=== PATIENT | female | born 1985 ===

== ENCOUNTER 2018-01-16 01:17 | Emergency (ER) | payer SELFPAY ==
--- NOTE | 2018-01-16 01:29 | C.PDOC ---
History Of Present Illness Patient brought in by family member due to excfessive intake of red wine in a democrat. Denied history of any injury or drug intake. Chief Complaint (Nursing): Substance Abuse History Per: Family History/Exam Limitations: intoxication Onset/Duration Of Symptoms: Hrs Current Symptoms Are (Timing): Still Present Suicide/Self Injury Attempted (Context): None Modifying Factor(s): Alcohol Severity: Severe Pain Scale Rating Of: 0 Associated Symptoms: denies: Anger, Anxiety, Depression, Suicidal Thoughts, Suicidal Plan Involuntary Hold By: None Recent travel outside of the [place]: No Past Medical History Vital Signs: Last Vital Signs Temp 97.5 F L 01/16/18 03:31 Pulse 80 01/16/18 03:31 Resp 14 01/16/18 03:31 BP 120/80 01/16/18 03:31 Pulse Ox 98 01/16/18 03:31 - Medical History PMH: No Chronic Diseases Surgical History: No Surg Hx Family History: States: Unknown Family Hx - Social History Hx Alcohol Use: Yes Hx Substance Use: No - Immunization History Hx Tetanus Toxoid Vaccination: No Hx Influenza Vaccination: No Hx Pneumococcal Vaccination: No Review Of Systems Constitutional: Negative for: Fever Eyes: Negative for: Pain Cardiovascular: Negative for: Chest Pain, Palpitations, Orthopnea, Paroxysmal Noc. Dyspnea Respiratory: Negative for: Cough, Shortness of Breath, Hemoptysis Gastrointestinal: Negative for: Nausea, Vomiting, Abdominal Pain, Diarrhea Genitourinary: Negative for: Dysuria, Frequency, Incontinence Skin: Negative for: Rash, Lesions Neurological: Positive for: Incoordination, Change in Speech, Other (answer question when asked,garbled speech due to intoxication). Negative for: Weakness , Numbness Psych: Negative for: Anxiety, Depression, Withdrawal ED Course And Treatment - Laboratory Results Result Diagrams: 01/16/18 02:09 01/16/18 02:09 O2 Sat by Pulse Oximetry: 99 Disposition Counseled Patient/Family Regarding: Diagnosis - Disposition Referrals: [facility] [Outside] Disposition: HOME/ ROUTINE Disposition Time: 03:30 Condition: STABLE Instructions: Alcohol Abuse and Alcoholism (DC) Forms: [facility] (Jordanian) - POA Present On Arrival: None - Clinical Impression Clinical Impression: Alcohol intoxication
[2018-01-16] MEDS ORDERED: Sodium Chloride 0.9% 1,000 ML IV ONE ×2 (01:32)
[2018-01-16 02:14] LABS: BASO # 0.1 K/uL (0.0-0.2); BASO % 0.6 % (0.0-2.0); EOS % 0.3 % (0.0-4.0); HEMOGLOBIN 12.8 g/dL (11.0-16.0); LYMPH # 1.3 K/uL (1.0-4.3); MEAN CELL VOLUME 79.7 fL (81.0-99.0); MEAN CORPUSCULAR HEMOGLOBIN 25.8 pg (27.0-31.0); MEAN CORPUSCULAR HGB CONC 32.3 g/dL (33.0-37.0); MEAN PLATELET VOLUME 8.1 fL (7.2-11.7); MONO # 0.4 K/uL (0.0-0.8); MONO % 3.7 % (0.0-10.0); NEUT # 9.3 K/uL (1.8-7.0); NEUT % 83.4 % (50.0-75.0); NRBC % 0.2 % (0.0-2.0); RBC 4.95 Mil/uL (3.80-5.20); RED CELL DISTRIBUTION WIDTH 14.9 % (11.5-14.5); WHITE BLOOD COUNT 11.2 K/uL (4.8-10.8)
[2018-01-16 02:24] LABS: CALCIUM 8.8 mg/dl (8.6-10.4); GFR AFRICAN-AMERICAN > 60; GFR NON-AFRICAN AMERICAN > 60
[2018-01-16 02:28] LABS: ALB/GLOB RATIO 1.1 (1.0-2.1); ALBUMIN 4.7 g/dL (3.5-5.0); ALT/SGPT 37 U/L (9-52); AST/SGOT 47 U/L (14-36); BLOOD UREA NITROGEN 11 mg/dL (7-17)
[2018-01-16 03:32] VITALS: BP 120/80; PULSE 80; RESP 14; TEMP 97.5
[2018-01-16 03:55] VITALS: O2SAT 99
== END 2018-01-16 03:32 | disposition home or self-care (01) ==
LOC: C.ER 01:17
DX: F10.129 Alcohol abuse with intoxication, unspecified (principal); Y90.8 Blood alcohol level of 240 mg/100 ml or more
CPT/HCPCS: 80053; 82948; 85025; 99283; G0480